=== PATIENT | female | born 1965 | race Caucasian/White ===

== ENCOUNTER 2017-09-02 06:23 | Day surgery (SDC) | payer OTHER ==
[~2017-09-02] VITALS: Ht 160 cm; Wt 90.7 kg
[2017-09-02] MEDS ORDERED: VAS10 PO (07:01)
[2017-09-02] MEDS ORDERED: BUPIVACAINE-MPF 0.25% 30 ML VIAL INJ ONE (07:27)
[2017-09-02] MEDS ORDERED: SUCCINYLCHOLINE CHLORIDE 200 MG/10 ML VIAL IV ONE (07:59)
[2017-09-02] MEDS ORDERED: ROCURONIUM 50 MG/5 ML VIAL IV ONE (07:59)
[2017-09-02] MEDS ORDERED: ONDANSETRON 4 MG/2 ML VIAL IVP ONE (07:59)
[2017-09-02] MEDS ORDERED: DEXAMETHASONE 4 MG/ML VIAL IVP ONE (07:59)
[2017-09-02] MEDS ORDERED: PROPOFOL 200 MG/20 ML VIAL IV ONE (07:59)
[2017-09-02] MEDS ORDERED: GLYCOPYRROLATE 0.2 MG/ML VIAL IV ONE (07:59)
[2017-09-02] MEDS ORDERED: DESFLURANE 240 ML BTL INH ONE (07:59)
[2017-09-02] MEDS ORDERED: NEOSTIGMINE 1:1000 10 MG/10 ML VIAL IM ONE (07:59)
[2017-09-02] MEDS ORDERED: ePHEDrine 50 MG/ML VIAL IV ONE (07:59)
[2017-09-02] MEDS ORDERED: LIDOCAINE 2% 100 MG/5 ML SYR IVP ONE (07:59)
[2017-09-02] MEDS ORDERED: MIDAZOLAM 2 MG/2 ML VIAL ONE (08:18)
[2017-09-02] MEDS ORDERED: fentaNYL 0.05 MG/ML VIAL ONE (08:18)
[2017-09-02] MEDS ORDERED: ONDANSETRON 4 MG/2 ML VIAL IVP PRN (08:30)
[2017-09-02] MEDS ORDERED: NACL 0.9% 1,000 ML IV SCH (10:07)
[2017-09-02] MEDS ORDERED: HYDROcodone/APAP 5/325 MG 1 TAB TAB PO PRN (10:10)
[2017-09-02] MEDS ORDERED: HYDROmorphone PFS 2 MG/ML SYR IVP PRN (10:10)
[2017-09-02] MEDS ORDERED: MORPHINE SULFATE 4 MG/ML SYR IV PRN (10:10)
[2017-09-02] MEDS ORDERED: ONDANSETRON 4 MG/2 ML VIAL IV PRN (10:10)
[2017-09-02] MEDS ORDERED: MORPHINE SULFATE 2 MG/ML SYR IVP PRN (10:10)
[2017-09-02] MEDS: HYDROmorphone PFS 2 MG/ML SYR IVP PRN ×4 (10:14→10:44)
[2017-09-02] MEDS ORDERED: HYDROmorphone PFS 2 MG/ML SYR ONE (10:28)
[2017-09-02] MEDS ORDERED: HYDROmorphone PFS 2 MG/ML SYR IVP ONE (12:00)
== END 2017-09-02 12:50 | disposition home or self-care (01) ==
LOC: MMU 06:23 → MDS 06:23
PROVIDERS: ATTEND Surgery
DX: K80.10 Calculus of gallbladder with chronic cholecystitis without obstruction (principal); I12.9 Hypertensive chronic kidney disease with stage 1 through stage 4 chronic kidney disease, or unspecified chronic kidney disease; E11.22 Type 2 diabetes mellitus with diabetic chronic kidney disease; N18.9 Chronic kidney disease, unspecified; J45.909 Unspecified asthma, uncomplicated; K21.9 Gastro-esophageal reflux disease without esophagitis; I63.9 Cerebral infarction, unspecified; E66.9 Obesity, unspecified; F17.210 Nicotine dependence, cigarettes, uncomplicated; D64.9 Anemia, unspecified; F03.90 Unspecified dementia, unspecified severity, without behavioral disturbance, psychotic disturbance, mood disturbance, and anxiety; K76.0 Fatty (change of) liver, not elsewhere classified; Z90.5 Acquired absence of kidney
CPT/HCPCS: 36415; 47562; 71010; 86886; 86900; 86901; 93005; J0330; J0690; J1100; J1170; J2001; J2250; J2405; J2704; J2710; J3010; J3490; J7030; J7060; J7120